=== PATIENT | male | born 1985 | race Caucasian/White ===

== ENCOUNTER 2025-06-17 15:19 | Outpatient (CLI) | payer BC ==
[2025-06-17 15:55] LABS: Hematocrit 43.2 % (38.8-50.0); Hemoglobin 14.7 g/dL (13.5-17.5); Mean Corpuscular Hemoglobin 30.4 pg (27.0-33.0); Mean Corpuscular Volume 89.4 fL (81.2-95.1); Platelet Count 277 10x3/uL (150-450); Red Blood Cell (RBC) Count 4.83 10x6/uL (4.32-5.72); White Blood Cell (WBC) Count 8.50 10x3/uL (3.5-10.5)
[2025-06-17 16:10] LABS: Anion Gap 12 mmol/L (10-20); BUN (Urea Nitrogen) 13 mg/dL (8.9-20.6); Calc. Creatinine Clearance 0 mL/min (70-130); Calcium 9.8 mg/dL (7.8-10.44); Carbon Dioxide 22 mmol/L (22-29); Chloride 106 mmol/L (98-107); Glucose 90 mg/dL (70-105); Potassium 4.2 mmol/L (3.5-5.1); Sodium 136 mmol/L (136-145)
== END 2025-06-17 15:20 | disposition home or self-care (01) ==
LOC: CSHLAB 15:19
PROVIDERS: ATTEND Surgery
DX: Z01.818 Encounter for other preprocedural examination (principal); K40.20 Bilateral inguinal hernia, without obstruction or gangrene, not specified as recurrent
CPT/HCPCS: 80048; 85027; 93005; 93010